=== PATIENT | female | born 1975 | race Caucasian/White ===

== ENCOUNTER 2017-10-11 07:23 | Day surgery (SDC) | payer OTHER ==
[~2017-10-11] VITALS: Ht 167.6 cm; Wt 71.2 kg
[~2017-10-11 07:23] MED LIST: AYGESTIN5 MG PO; CELEXA20 MG PO; TOVIAZ4 MG PO; VESICARE10 MG PO
[2017-10-11 08:22] VITALS: BP 141/90
[2017-10-11 14:17] VITALS: BP 138/82
[2017-10-11 20:00] VITALS: BP 149/89
[2017-10-12] VITALS: BP 160/86
[2017-10-12 04:21] VITALS: BP 158/91
[2017-10-12 06:50] LABS: HEMATOCRIT 31.8 % (36.0-46.0); MCH 29.6 PG (29.0-34.0); MCV 87.1 FL (83-99); MEAN PLAT.VOLUME 8.5 uM^3 (9.5-12.4); RBC DIS.WIDTH-SD 38.4 % (39-53); WHITE BLOOD COUNT 11.2 K/uL (4.1-10.2)
[2017-10-12 06:55] LABS: PLATELET COUNT 246 K/uL (156-360); RED BLOOD COUNT 3.65 M/uL (3.80-5.20)
[2017-10-12 07:45] VITALS: BP 150/92
[2017-10-12] MEDS ORDERED: IBUPROFEN800 MG PO (09:36)
[2017-10-12] MEDS ORDERED: ENDOCET 5-3251 EACH PO (09:36)
== END 2017-10-12 10:13 | disposition home or self-care (01) ==
LOC: SDC 07:23 → 2SOUTH 11:30 → 2EASTP 11:30 → ENRESERV 12:10 → SDC 13:55 → 2EASTP 14:10
PROVIDERS: Obstetrics & Gynecology
PROC: 0UT97ZZ Resection of Uterus, Via Natural or Artificial Opening (ICD-10-PCS; principal; 2017-10-11)
DX: N80.0 Endometriosis of uterus (principal); D25.2 Subserosal leiomyoma of uterus; N84.0 Polyp of corpus uteri; N72 Inflammatory disease of cervix uteri; N39.41 Urge incontinence
CPT/HCPCS: 85027; 88307; G0378; J0330; J0690; J1100; J1170; J1885; J2250; J2405; J2710; J2765; J3010; J7120